=== PATIENT | female | born 1935 | race Two or more races ===

== ENCOUNTER 2017-07-02 04:18 | Emergency (ER) | payer MEDICARE, OTHER ==
[~2017-07-02] VITALS: Ht 152.4 cm; Wt 136.1 kg
[~2017-07-02 04:18] MED LIST: ALBUTEROL2.5 MG/3 M INH; AMLODIPINE BESY10 MG ORAL; ASPIR 8181 MG ORAL; BENAZEPRIL HCL40 MG ORAL; CEFTRIAXONE1 G2 IV; FUROSEMIDE40 MG ORAL; GLIPIZIDE5 MG ORAL; METFORMIN HCL1000 M1 ORAL; METFORMIN HCL500 M1 ORAL; NOVOLOG100 UNIT/3 SUBQ; SIMVASTATIN20 MG ORAL; TENORMIN50 MG ORAL; TYLENOL EXTRA500 MG ORAL; UNOBMED; WARFARIN SODIUM5 MG ORAL; ZANTAC150 MG ORAL
--- NOTE | 2017-07-02 04:29 | Emergency Room Report ---
History of Present Illness General Chief Complaint: Dyspnea/Respdistress Source: Patient, Medical Record, EMS Present Illness HPI This is a 81-year-old female with a history of diastolic CHF. History of hypertension also. She presents with increasing shortness of breath for about a week. Just finished a course of antibiotics. Symptom worsen tonight. She is not on any diuretic. Per EMS she was very short of breath and wheezing so this gave her 2 rounds of albuterol. She fell better now. No fever or chills. No nausea vomiting. Increasing edema for the last week. Does have chest pain and tightness because of the breathing. worse with exertion and lying flat. Allergies: Coded Allergies: No Known Allergies (Unverified , 05/22/16) Patient History Past Medical History: see triage record, old chart reviewed, HTN, CHF, other Past Surgical History: pacemaker Pertinent Family History: none Social History: Denies: smoking Last Menstrual Period: N/A Now: No Immunizations: other Reviewed Nursing Documentation: PMH: Agreed, PSxH: Agreed Nursing Documentation-PMH Hx Cardiac Problems: Yes - Stent Hx Hypertension: Yes Hx Pacemaker: Yes Hx Asthma: Yes Hx Diabetes: Yes Hx Cancer: No Hx Gastrointestinal Problems: No Hx Neurological Problems: No Review of Systems Eye: Denies: eye pain, blurred vision ENT: Denies: ear pain, nose congestion, throat swelling Respiratory: Reports: cough, shortness of breath Cardiovascular: Denies: chest pain, palpitations Gastrointestinal: Denies: abdominal pain, diarrhea, nausea, vomiting Musculoskeletal: Denies: back pain, joint pain Skin: Denies: rash Neurological: Denies: headache, numbness Endocrine: Denies: increased thirst, increased urine Hematologic/Lymphatic: Denies: easy bruising All Other Systems: negative except mentioned in HPI Physical Exam Vital Signs Date Time Temp Pulse Resp B/P (MAP) Pulse Ox O2 Delivery O2 Flow Rate FiO2 07/02/17 04:16 99.0 69 28 149/102 98 Non-Rebreather 8.0 vitals with hypoxia and high blood pressure Sp02 EP Interpretation: abnormal General Appearance: moderate distress, obese Head: normocephalic, atraumatic Eyes: bilateral eye PERRL, bilateral eye EOMI ENT: hearing grossly normal, normal pharynx Neck: full range of motion, supple, no meningismus, other - JVD Respiratory: chest non-tender, respiratory distress, decreased breath sounds, accessory muscle use, rales Cardiovascular #1: regular rate, rhythm, no murmur Gastrointestinal: normal bowel sounds, non tender, no mass, no organomegaly, no bruit, non-distended Musculoskeletal: back normal, normal range of motion, swelling - Diffuse anasarca. 4+ pitting edema Psychiatric: mood/affect normal Skin: warm/dry Medical Decision Making Diagnostic Impression: Primary Impression: CHF exacerbation Qualified Codes: I50.33 - Acute on chronic diastolic (congestive) heart failure Additional Impressions: Respiratory distress Atrial fibrillation, controlled Anemia Qualified Codes: D64.9 - Anemia, unspecified ER Course Presents with CHF exacerbation. She diuresed well and is much improved. Able to talk in full sentences now. No evidence of PE, pneumonia, dissection to name a few. We'll admit versus transfer based on her insurance. I discussed the case with Dr. Ji Jarrell at [facility]. He knows the patient well. Except the patient for transfer to [facility]. Laboratory Tests Test 07/02/17 04:25 07/02/17 04:32 White Blood Count 8.6 K/UL (4.8-10.8) Red Blood Count 3.87 M/UL (4.20-5.40) L Hemoglobin 11.0 G/DL (12.0-16.0) L Hematocrit 35.4 % (37.0-47.0) L Mean Corpuscular Volume 91 FL (80-99) Mean Corpuscular Hemoglobin 28.5 PG (27.0-31.0) Mean Corpuscular Hemoglobin Concent 31.2 G/DL (32.0-36.0) L Red Cell Distribution Width 16.5 % (11.6-14.8) H Platelet Count 247 K/UL (150-450) Mean Platelet Volume 7.0 FL (6.5-10.1) Neutrophils (%) (Auto) 74.9 % (45.0-75.0) Lymphocytes (%) (Auto) 11.3 % (20.0-45.0) L Monocytes (%) (Auto) 11.3 % (1.0-10.0) H Eosinophils (%) (Auto) 1.9 % (0.0-3.0) Basophils (%) (Auto) 0.7 % (0.0-2.0) Prothrombin Time 41.4 SEC (9.30-11.50) H Prothromb Time International Ratio 3.9 (0.9-1.1) H Activated Partial Thromboplast Time 46 SEC (23-33) H Sodium Level 131 MMOL/L (136-145) L Potassium Level 5.7 MMOL/L (3.5-5.1) H Chloride Level 100 MMOL/L (98-107) Carbon Dioxide Level 30 MMOL/L (21-32) Anion Gap 1 mmol/L (5-15) L Blood Urea Nitrogen 39 mg/dL (7-18) H Creatinine 1.4 MG/DL (0.55-1.30) H Estimat Glomerular Filtration Rate mL/min (>60) Glucose Level 220 MG/DL (74-106) H Calcium Level 8.8 MG/DL (8.5-10.1) Total Bilirubin 0.2 MG/DL (0.2-1.0) Aspartate Amino Transf (AST/SGOT) 55 U/L (15-37) H Alanine Aminotransferase (ALT/SGPT) 51 U/L (12-78) Alkaline Phosphatase 125 U/L (46-116) H Total Creatine Kinase 54 U/L (26-308) Creatine Kinase MB 3.4 NG/ML (0.0-3.6) Creatine Kinase MB Relative Index 6.2 Troponin I 0.004 ng/mL (0.000-0.056) Pro-B-Type Natriuretic Peptide 1077 pg/mL (0-125) H Total Protein 6.7 G/DL (6.4-8.2) Albumin 3.1 G/DL (3.4-5.0) L Globulin 3.6 g/dL Albumin/Globulin Ratio 0.9 (1.0-2.7) L Urine Color Pale yellow Urine Appearance Clear Urine pH 5 (4.5-8.0) Urine Specific [place] 1.020 (1.005-1.035) Urine Protein 2+ (NEGATIVE) H Urine Glucose (UA) Negative (NEGATIVE) Urine Ketones Negative (NEGATIVE) Urine Occult Blood Negative (NEGATIVE) Urine Nitrite Negative (NEGATIVE) Urine Bilirubin Negative (NEGATIVE) Urine Urobilinogen Normal MG/DL (0.0-1.0) Urine Leukocyte Esterase Negative (NEGATIVE) Urine RBC 0 /HPF (0 - 2) Urine WBC 0-2 /HPF (0 - 2) Urine Squamous Epithelial Cells Occasional /LPF Urine Bacteria None /HPF (NONE) Lab Results Impression labs with elevated BNP EKG Diagnostic Results Rate: normal Rhythm: NSR ST Segments: other - paced ASA given to the pt in ED: Yes Rhythm Strip Diag. Results Rhythm Strip Time: 04:28 EP Interpretation: yes Rate: 64 Rhythm: NSR, no PVC's, no ectopy Chest X-Ray Diagnostic Results Chest X-Ray Diagnostic Results : Chest X-Ray Ordered: Yes # of Views/Limited/Complete: 1 View Indication: Shortness of Breath EP Interpretation: Yes Interpretation: no consolidation, no effusion, no pneumothorax, other - Cardiomegaly with vascular congestion Impression: Other - CHF Electronically Signed by: Luci Hughes MD Last Vital Signs Date Time Temp Pulse Resp B/P (MAP) Pulse Ox O2 Delivery O2 Flow Rate FiO2 18 04:16 99.0 69 28 149/102 98 Non-Rebreather 8.0 Status: improved Disposition: XFER SHT-TRM HOSP Condition: Stable LUCI HUGHES M.D. Jul 02, 2017 04:29
[2017-07-02 04:30] VITALS: BP 149/102
[2017-07-02] MEDS ORDERED: Aspirin Baby 81mg ORAL ONE (04:30)
[2017-07-02 04:49] LABS: BASOPHILS % (AUTO) 0.7 % (0.0-2.0); EOSINOPHILS % (AUTO) 1.9 % (0.0-3.0); HEMATOCRIT 35.4 % (37.0-47.0); LYMPHOCYTES % (AUTO) 11.3 % (20.0-45.0); MEAN CORPUSCULAR VOLUME 91 FL (80-99); MONOCYTES % (AUTO) 11.3 % (1.0-10.0); NEUTROPHILS % (AUTO) 74.9 % (45.0-75.0); PLATELET COUNT 247 K/UL (150-450); RED BLOOD COUNT 3.87 M/UL (4.20-5.40); RED CELL DISTRIBUTION WIDTH 16.5 % (11.6-14.8); WHITE BLOOD COUNT 8.6 K/UL (4.8-10.8)
[2017-07-02 05:02] LABS: APPEARANCE,URINE CLEAR; BILIRUBIN, URINE NEGATIVE (NEGATIVE); COLOR,URINE PALE YELLOW; GLUCOSE, URINE (UA) NEGATIVE (NEGATIVE); KETONES,URINE NEGATIVE (NEGATIVE); LEUKOCYTE ESTERASE ,URINE NEGATIVE (NEGATIVE); NITRITE,URINE NEGATIVE (NEGATIVE); PH,URINE 5 (4.5-8.0); PROTEIN,URINE 2+ (NEGATIVE); UROBILINOGEN,URINE NORMAL MG/DL (0.0-1.0)
[2017-07-02 05:02] LABS: ANION GAP 1 mmol/L (5-15); BLOOD UREA NITROGEN 39 mg/dL (7-18); CALCIUM 8.8 MG/DL (8.5-10.1); CARBON DIOXIDE 30 MMOL/L (21-32); CHLORIDE 100 MMOL/L (98-107); CREATININE 1.4 MG/DL (0.55-1.30); POTASSIUM 5.7 MMOL/L (3.5-5.1); SODIUM 131 MMOL/L (136-145)
[2017-07-02 05:05] LABS: INR 3.9 (0.9-1.1)
[2017-07-02 05:17] LABS: ALANINE AMINOTRANSFERASE 51 U/L (12-78); ALBUMIN 3.1 G/DL (3.4-5.0); ALBUMIN/GLOBULIN RATIO 0.9 (1.0-2.7); ALKALINE PHOSPHATASE 125 U/L (46-116); ASPARTATE AMINO TRANSFERASE 55 U/L (15-37); BILIRUBIN,TOTAL 0.2 MG/DL (0.2-1.0); CKMB 3.4 NG/ML (0.0-3.6); CREATINE KINASE 54 U/L (26-308)
[2017-07-02 05:30] VITALS: BP 120/41
[2017-07-02 06:31] VITALS: BP 118/50
[2017-07-02] MEDS ORDERED: Norco 5mg/325mg tab ORAL ONE (07:00)
[2017-07-02 07:36] VITALS: BP 111/47
[2017-07-02 08:45] VITALS: BP 111/47
--- NOTE | 2017-07-02 11:35 | Diagnostic Imaging Report ---
Indication: Shortness of breath Technique: One view of the chest Comparison: none Findings: The heart is enlarged. There is bilateral interstitial and airspace edema. There is bilateral perihilar scarring. There is a left chest pacemaker again noted. Markedly abnormal right shoulder, with a hemiarthroplasty prosthesis present, possible dislocation, and possible ankylosis of the shoulder joint. Degree of pulmonary edema is appears similar to the previous study Impression: Evidence of cardiomegaly and pulmonary interstitial and airspace edema. Other findings as noted
--- NOTE | 2017-07-03 18:25 | Cardiology Report ---
APPROVED REPORT EKG Measurement Heart [id number] Atrial paced rhythm. Cannot rule out Anterior infarct, age undetermined Abnormal ECG
== END 2017-07-02 08:45 | disposition short-term general hospital (02) ==
LOC: EDBD 04:18 → EMR 04:26
DX: I11.0 Hypertensive heart disease with heart failure (principal); I50.30 Unspecified diastolic (congestive) heart failure; I48.91 Unspecified atrial fibrillation; D64.9 Anemia, unspecified; E11.9 Type 2 diabetes mellitus without complications; Z95.0 Presence of cardiac pacemaker; J45.909 Unspecified asthma, uncomplicated
CPT/HCPCS: 36415; 71045; 80053; 81003; 82550; 82553; 83880; 84484; 85025; 85610; 85730; 93005; 96374; 99285; J1940